=== PATIENT | male | born 1945 | race Caucasian/White ===

== ENCOUNTER 2016-11-11 22:47 | Emergency (ER) | payer OTHER ==
[~2016-11-11] VITALS: Ht 177.8 cm; Wt 95.3 kg
[~2016-11-11 22:47] MED LIST: ALLOPURINOL100 MG PO; BYSTOLIC 5MG5 MG PO
[2016-11-11] MEDS ORDERED: PERCOCET 5-3251 EACH PO (23:21)
[2016-11-11] MEDS ORDERED: LOSARTAN POTASS50 M1 PO (23:22)
[2016-11-11] MEDS ORDERED: METFORMIN HCL1000 M2 PO (23:22)
[2016-11-11] MEDS ORDERED: ALLOPURINOL100 M1 PO (23:22)
[2016-11-11] MEDS ORDERED: IBUPROFEN800 M1 PO (23:25)
[2016-11-11] MEDS ORDERED: DIAZEPAM5 M1 PO (23:26)
[2016-11-11] MEDS ORDERED: CIALIS5 M1 PO (23:27)
[2016-11-11] MEDS ORDERED: MULTI-DAY VITA1 EACH PO (23:27)
[2016-11-11] MEDS ORDERED: ALEVE220 M1 PO (23:29)
[2016-11-11] MEDS ORDERED: MEDROL4 M2 PO (23:47)
[2016-11-11] MEDS ORDERED: OXYCODONE HCL5 M1 PO (23:47)
--- NOTE | 2016-11-11 23:49 | ED NECK/BACK PAIN COMPLAINT ---
History of Present Illness General Chief Complaint: Lower Extremity Problems Stated Complaint: PT HAS PAIN FROM HIS HIP DOWN TO TOES ,TINGLING Source: patient Exam Limitations: no limitations Vital Signs & Intake/Output Vital Signs & Intake/Output Vital Signs Date Time Temp Pulse Resp B/P Pulse O2 O2 Flow FiO2 Ox Delivery Rate 11/11 2253 97.4 60 20 126/74 96 Room Air ED Intake and Output 11/12 0000 11/11 1200 Intake Total Output Total Balance Patient 210 lb Weight Allergies Coded Allergies: NO KNOWN ALLERGIES (NONE) (11/11/16) Reconcile Medications Allopurinol 100 MG TABLET 1 TAB PO DAILY GOUT (Reported) Diazepam 5 MG TABLET 1 TAB PO QPM MUSCLE RELAXER (Reported) Ibuprofen 800 MG TABLET 1 TAB PO TID PAIN/INFLAMMATION (Reported) Losartan Potassium 50 MG TABLET 1 TAB PO DAILY BP (Reported) Metformin HCl (Metformin HCl ER) 1,000 MG TAB.ER.24 1 TAB PO DAILY DM ( Reported) Methylprednisolone. (Medrol) 4 MG TAB.DS.PK 1 DP PO AD SCIATICA 6 on day 1 then reduce by one tablet daily until gone Multivitamin (Multi-Day Vitamins) 1 EACH TABLET 1 TAB PO DAILY SUPPLEMENT ( Reported) Naproxen Sodium (Aleve) 220 MG CAPSULE 4 TAB PO PRN PAIN (Reported) Oxycodone HCl 5 MG TABLET 2 TAB PO Q8P PRN PAIN Oxycodone HCl/Acetaminophen (Percocet 5-325 MG Tablet) 5 MG-325 MG TABLET 1 TAB PO PRN PAIN (Reported) Tadalafil (Cialis) 5 MG TABLET 1 TAB PO DAILY (Reported) Triage Note: TRIAGE: PT TO ER WITH SON C/C PAIN FROM RT BUTTOCK DOWN TO RT FOOT SINCE LAST WEEK, CONSTANT SINCE ONSET. WAS SEEN AT [facility]OUGH WORK AND WAS PRESCRIBED IBUPROFEN, PERCOCET AND VALIUM. STATES NONE OF IT IS WORKING AND ONLY MAKES HIM FEEL DIZZY AND HAVE UNSTEADY GAIT. WAS DIAGNOSED WITH SCIATICA. HAS APPT NEXT WEAK WITH BACK SPECIALIST TO SEE IF IT IS A HERNIATED DISK. Triage Nurses Notes Reviewed? yes Onset: Abrupt Duration: week(s): (1), constant, continues in ED Timing: recent history Radiation: upper legs, lower legs, feet Method of Injury: unknown Loss of Consciousness: no loss of consciousness HPI: 70-year-old male comes into emergency room for further evaluation of right lower buttocks pain that radiates down his right leg into his foot. Pain is sharp. Continuous. Pain is worse with any range of motion. Patient was prescribed Valium and Percocet and ibuprofen 800 mg which she has been taking with no relief. Patient also admits that he is been taking Aleve on top of the ibuprofen 4 tabs 4 times a day at times. Patient has been doing this intermittently for one week only. Nothing has been helping with the pain. Denies any urinary bowel dysfunction. Denies any other associated symptoms. (RONNI LI) Past History Travel History Traveled to [place] past 21 day No Medical History Any Pertinent Medical History? see below for history Neurological: NONE EENT: NONE Cardiovascular: hypertension Respiratory: NONE Gastrointestinal: NONE Hepatic: NONE Renal: NONE Musculoskeletal: sciatica Psychiatric: NONE Endocrine: diabetes Blood Disorders: NONE Cancer(s): NONE GEOLOGICAL E LOGGER/Reproductive: NONE Surgical History Surgical History: non-contributory Psychosocial History What is your primary language Slovenian Tobacco Use: Quit >30 days ago ETOH Use: occasional use Illicit Drug Use: denies illicit drug use Family History Hx Contributory? No (RONNI LI) Review of Systems Review of Systems Constitutional: Reports: no symptoms. Eyes: Reports: no symptoms. Ears, Nose, Throat, Mouth: Reports: no symptoms. Respiratory: Reports: no symptoms. Cardiovascular: Reports: no symptoms. Gastrointestinal/Abdominal: Reports: no symptoms. Musculoskeletal: Reports: see HPI. Skin: Reports: no symptoms. Neurological/Psychological: Reports: see HPI. All Other Systems: Reviewed and Negative (RONNI LI) Physical Exam Physical Exam General Appearance: well developed/nourished, mild distress Head: atraumatic Eyes: Bilateral: normal appearance. Ears, Nose, Throat, Mouth: hearing grossly normal, moist mucous membrane Neck: normal inspection, full range of motion Respiratory: normal breath sounds, no respiratory distress Cardiovascular: regular rate/rhythm Back: normal inspection Extremities: normal range of motion Motor: Deficit L4 Right: No Deficit L4 Left: No Deficit L5 Right: No Deficit L5 Left: No Deficit S1 Right: No Deficit S1 Right: No Neurologic/Psych: awake, alert, oriented x 3, normal mood/affect Skin: intact, normal color, warm/dry (RONNI LI) Progress Differential Diagnosis: carotid dissection, cauda equina syn, herniated disc, myofascial strain, pyelo/UTI, sciatica, spinal cord inj, thoracic outlet syn, T/ L spine injury, ureterolithiasis Plan of Care: Orders Procedure Date/time Status Add-on Test (ER Only) 11/11 235 Active SALICYLATE 11/11 2354 Active COMPREHENSIVE METABOLIC PANEL 11/11 2344 Active CBC WITHOUT DIFFERENTIAL 11/11 2344 Active Laboratory Tests 11/11/16 2355: Sodium Pending, Potassium Pending, Chloride Pending, Carbon Dioxide Pending, Anion Gap Pending, BUN Pending, Creatinine Pending, BUN/Creatinine Ratio Pending , Glucose Pending, Calcium Pending, Total Bilirubin Pending, AST Pending, ALT Pending, Alkaline Phosphatase Pending, Total Protein Pending, Albumin Pending, Globulin Pending, Albumin/Globulin Ratio Pending, CBC w Diff Pending, WBC Pending, RBC Pending, Hgb Pending, Hct Pending, MCV Pending, MCH Pending, RDW Pending, Plt Count Pending, MPV Pending, PUBS MCHC Pending, Salicylates Pending Departure Departure Disposition: HOME OR SELF CARE Condition: Stable Clinical Impression Primary Impression: Sciatica Referrals: PHIL OLSEN,LEIGH ANN Alas (PCP/Family) Additional Instructions: Take oxycodone as prescribed. Take your Valium at home. Take Medrol Dosepak as prescribed. Do not take any form of NSAID for the next 2 weeks. Do not take any ibuprofen Motrin Naprosyn and Aleve. You need to have an outpatient MRI of the lower back. Contact your primary care doctor to schedule you. Finish her bottle of Percocet before he takes the oxycodone that was prescribed. Please go over all results of today's visit with your primary care doctor. Contact your primary care doctor to let them know you were here in the emergency room. There may be nonspecific findings which may not be related to your visit today here in the emergency room but may require further evaluation and chronic monitoring by your primary care doctor. If you had a laceration today the chance of foreign body always remains. You should follow-up with your primary care doctor for recheck in 3-5 days for a wound check. If you had an x-ray done there is a chance that a fracture could have been missed on initial read and you should follow-up with your primary care doctor for repeat x-rays if symptoms persist. If your blood pressure was elevated here in the emergency room please have rechecked by her primary care doctor within the next 48 hours by your primary care doctor. If you were prescribed a narcotic here in the emergency room or any type of controlled substances you're not allowed to drive while taking this medication or operate any type of heavy machinery. Narcotics can make you feel lightheaded dizziness nausea and can cause constipation. You may need to shrimp picker a stool softener. Thank you for choosing [facility] emergency room. Please return to the emergency room immediately if you have any other concerns worsening of symptoms. Departure Forms: Customer Survey General Discharge Information Prescriptions: Current Visit Scripts Oxycodone HCl 2 TAB PO Q8P PRN PAIN #15 TAB Methylprednisolone. (Medrol) 1 DP PO AD #1 DP 6 on day 1 then reduce by one tablet daily until gone Comments 11/12/2016 12:11:27 AM Patient clinically looks well at this time but due to the fact he is been taking an excessive amount of NSAIDs patient was going to be further evaluated for any type of kidney dysfunction and blood work was sent. (JEANE JAMES,RONNI) PA/TRANSCRIPTION COORDINATOR Co-Sign Statement Statement: ED Attending supervision documentation- [] I saw and evaluated the patient. I have also reviewed all the pertinent lab results and diagnostic results. I agree with the findings and the plan of care as documented in the PA's/TRANSCRIPTION COORDINATOR's documentation. [x] I have reviewed the ED Record and agree with the PA's/TRANSCRIPTION COORDINATOR's documentation. [] Additions or exceptions (if any) to the PAs/TRANSCRIPTION COORDINATOR's note and plan are summarized below: [] (KYE OLSEN,DIRK Self)
[2016-11-12 00:28] LABS: ABSOLUTE BASOPHIL COUNT 0 /CUMM (0.0-0.2); ABSOLUTE EOSINOPHIL COUNT 0.2 /CUMM (0.0-0.7); ABSOLUTE GRANULOCYTE CT 3.1 /CUMM (1.4-6.5); ABSOLUTE LYMPH COUNT 1.1 /CUMM (1.2-3.4); ABSOLUTE MONOCYTE COUNT 0.6 /CUMM (0.10-0.60); BASOPHIL % 0.4 % (0.0-2.0); EOSINOPHIL % 3.8 % (0-5); GRANULOCYTE % 62.5 % (42.2-75.2); HEMATOCRIT 44.5 % (42-52); MEAN CORPUSCULAR HGB 29.4 PG (27.0-31.0); MEAN CORPUSCULAR HGB CONC 33.9 G/DL (33.0-37.0); MEAN CORPUSCULAR VOLUME 86.6 FL (80.0-94.0); MEAN PLATELET VOLUME 9.1 FL (7.4-10.4); PLATELET COUNT 152 /CUMM (130-400); RBC DISTRIBUTION WIDTH 14.3 % (11.5-14.5); RED BLOOD CELL CT 5.14 /CUMM (4.70-6.10)
[2016-11-12 01:02] VITALS: BP 124/72
== END 2016-11-12 01:02 ==
LOC: ERH 22:47
PROVIDERS: Physician Assistant Medical
DX: M54.31 Sciatica, right side (principal)
CPT/HCPCS: G0480